=== PATIENT | female | born 1995 | race African-American/Black ===

== ENCOUNTER 2017-02-21 05:10 | Emergency (ER) | payer BC ==
[~2017-02-21] VITALS: Ht 167.6 cm; Wt 53.5 kg
[2017-02-21 05:22] VITALS: Ht 167.6 cm; Wt 53.5 kg
[2017-02-21] MEDS ORDERED: ASPIRIN 325 MG TAB PO STA (06:19)
[2017-02-21 06:35] LABS: ADD SCAN DIFF NO
[2017-02-21 06:40] LABS: BASOPHIL # 0.1 10^3/ul (0.0-0.1); BASOPHILS % 0.7 % (0.0-2.0); EOSINOPHILS # 0.1 10^3/ul (0.0-0.5); HEMATOCRIT 36.4 % (37.0-47.0); LYMPHOCYTES # 2.2 10^3/ul (0.8-2.9); LYMPHOCYTES % 31.4 % (15.0-51.0); MEAN CORPUSCULAR HEMOGLOBIN 30.5 pg (29.0-33.0); MEAN CORPUSCULAR VOLUME 92.6 fl (82.0-101.0); MEAN PLATELET VOLUME 8.3 fl (7.4-10.4); MONOCYTE # 0.9 10^3/ul (0.3-0.9); MONOCYTES % 13.7 % (0.0-11.0); NEUTROPHIL # 3.6 10^3/ul (1.6-7.5); NEUTROPHILS % 51.9 % (39.0-77.0); PLATELET COUNT 373 10^3/UL (140-415); RED BLOOD COUNT 3.93 10^6/ul (4.20-5.40); RED CELL DISTRIBUTION WIDTH 13.1 % (11.5-14.5); WHITE BLOOD COUNT 6.9 10^3/ul (4.8-10.8)
--- NOTE | 2017-02-21 06:44 | RADRPT ---
PROCEDURE: XR Chest. CLINICAL INDICATION: Chest pain TECHNIQUE: A single AP view of the chest was obtained. COMPARISON: None. FINDINGS: Artifact obscures evaluation of the upper mediastinum. No focal airspace opacification, pleural eff usion or pneumothorax is seen. The cardiomediastinal silhouette is within normal limits for size. The osseous structures are unremarkable. IMPRESSION: Artifact from the patient's hair obscures evaluation of the upper mediastinum. No definite abnormal ity is appreciated. Consider repeat evaluation with hair removed from the field of view. RPTAT: HH .Mary Donato MD, MD Date Time Electronically viewed and signed by .Mary Donato MD, on 02/21/2017 06:44 .G/
[2017-02-21 06:55] LABS: ANION GAP 11 (8-16); BLOOD UREA NITROGEN 8 mg/dl (7-20); CARBON DIOXIDE 26 mmol/L (21-31); CHLORIDE 106 mmol/L (97-110); CREATININE 0.79 mg/dl (0.44-1.00); GLUCOSE 96 mg/dl (70-220); POTASSIUM 3.9 mmol/L (3.5-5.1); SODIUM 139 mmol/L (135-144)
[2017-02-21 07:08] LABS: TROPONIN-I < 0.012 ng/ml (0.00-0.12)
[2017-02-21] MEDS ORDERED: KETOROLAC 30 MG INJ IV STA (07:19)
--- NOTE | 2017-02-21 09:03 | ERD ---
ER Documentation Chief Complaint Date/Time DATE: 02/21/17 TIME: 08:54 Chief Complaint anxiety, sob, chest tightness HPI This 22-year-old female presents emergency room for feeling of nonradiating soreness and tightness in her chest. It is made worse by certain positions such as laying on one side or the other. Is been going on for 2 weeks. She had been seen previously at a different facility and told that she had anxiety. Says that she has had some mild shortness of breath from time to time. Denies nausea vomiting. Denies lightheadedness or weakness. She denies any fever or chills. Patient's EKG is quite obvious for pericarditis and was performed prior to me seeing her. I told her that this is probably pericarditis and she says that actually she was diagnosed with that approximately a year ago as well and it had subsided. ROS All systems reviewed and are negative except as per history of present illness. Medications Home Meds Active Scripts Hydrocodone/Acetaminophen ([place] 5-325 Tablet) 1 Each Tablet, 1 EACH PO Q6, #14 TAB Prov:SAM DEAL DO 02/21/17 Allergies Allergies: Coded Allergies: ibuprofen (Verified Allergy, Unknown, NAUSEA , DIARRHEA, 02/21/17) PMhx/Soc Medical and Surgical Hx: pt denies Medical Hx, pt denies Surgical Hx Hx Alcohol Use: Yes Hx Substance Use: Yes (marijuana use) Hx Tobacco Use: Yes (marijuana use) Smoking Status: Unknown if ever smoked Physical Exam Vitals Vital Signs Date Time Temp Pulse Resp B/P Pulse Ox O2 Delivery O2 Flow Rate FiO2 02/21/17 05:22 97.8 94 20 131/70 99 Physical Exam Const: [] No distress Head: Atraumatic Eyes: Normal Conjunctiva ENT: Normal External Ears, Nose and Mouth. Neck: Full range of motion..~ No meningismus. Resp: Clear to auscultation bilaterally Cardio: Regular rate and rhythm, no murmurs, no friction rub Abd: Soft, non tender, non distended. Normal bowel sounds Skin: No petechiae or rashes Ext: No cyanosis, or edema Neur: Awake and alert Psych: Normal Mood and Affect Result Diagram: 02/21/17 0626 02/21/17 0626 Results 24 hrs Laboratory Tests Test 02/21/17 06:26 White Blood Count 6.910^3/ul Red Blood Count 3.9310^6/ul Hemoglobin 12.0g/dl Hematocrit 36.4% Mean Corpuscular Volume 92.6fl Mean Corpuscular Hemoglobin 30.5pg Mean Corpuscular Hemoglobin Concent 33.0g/dl Red Cell Distribution Width 13.1% Platelet Count 43669^3/UL Mean Platelet Volume 8.3fl Neutrophils % 51.9% Lymphocytes % 31.4% Monocytes % 13.7% Eosinophils % 2.0% Basophils % 0.7% Nucleated Red Blood Cells % 0.0/100WBC Neutrophils # 3.610^3/ul Lymphocytes # 2.210^3/ul Monocytes # 0.910^3/ul Eosinophils # 0.110^3/ul Basophils # 0.110^3/ul Nucleated Red Blood Cells # 0.010^3/ul Sodium Level 139mmol/L Potassium Level 3.9mmol/L Chloride Level 106mmol/L Carbon Dioxide Level 26mmol/L Anion Gap 11 Blood Urea Nitrogen 8mg/dl Creatinine 0.79mg/dl Glucose Level 96mg/dl Calcium Level 9.0mg/dl Troponin I < 0.012ng/ml Current Medications Medications (Trade) Dose Ordered Sig/Kirsten Route PRN Reason Start Time Stop Time Status Last Admin Dose Admin Aspirin (Aspirin) 325 mg ONCE STAT PO 02/21/17 06:19 02/21/17 06:22 DC 02/21/17 06:27 Ketorolac Tromethamine (Toradol) 30 mg ONCE STAT IV 02/21/17 07:19 02/21/17 07:20 DC 02/21/17 07:39 Procedures/MDM Acute pericarditis. Patient preferred to have a workup with blood work to check for any other causes. She had no evidence for ischemia and had a negative troponin after 2 weeks of the pain. I have very low suspicion for pulmonary embolism, myocardial infarction, myocarditis. She was given Toradol which resolved her pain and allowed her to sleep for the first time in a few days she said. She is feeling much better. I am going to discharge her with naproxen 500 mg twice daily as well as instructions to follow-up with her primary care doctor for an appointment for an echocardiogram. EKG interpretation: Normal sinus rhythm, normal axis, diffuse ST elevations consistent with acute pericarditis. monitor car operator interpretation: Normal sinus rhythm without arrhythmias Chest x-ray interpretation: I see no acute process, no widened mediastinum, no pneumothorax, no pulmonary edema, no fractures Departure Diagnosis: Primary Impression: Acute pericarditis Condition: Stable SAM DEAL DO February 21, 2017 09:03
[2017-02-21] MEDS ORDERED: HYDR-906 PO (09:04)
[2017-02-21 09:07] VITALS: BP 126/72; PULSE 88; RESP 20; TEMP 98.1
== END 2017-02-21 09:08 | disposition home or self-care (01) ==
LOC: FTE 05:10
DX: I30.9 Acute pericarditis, unspecified (principal); R07.89 Other chest pain
CPT/HCPCS: 36415; 71010; 80048; 84484; 85025; 96374; 99285; J1885

== ENCOUNTER 2017-06-11 00:39 | Emergency (ER) | payer BC ==
[~2017-06-11] VITALS: Ht 162.6 cm; Wt 52.0 kg
[~2017-06-11 00:39] MED LIST: HYDR-906 PO
[2017-06-11 00:44] VITALS: Ht 162.6 cm; Wt 52.0 kg
[2017-06-11] MEDS ORDERED: ONDANSETRON 4 MG INJ IV STA (00:52)
[2017-06-11] MEDS ORDERED: morphine 4 MG/ML VIAL IV STA (00:52)
[2017-06-11] MEDS ORDERED: SOD CHLORIDE 0.9% 500 ML IV STA (00:52)
--- NOTE | 2017-06-11 02:08 | RADRPT ---
PROCEDURE: XR Chest. CLINICAL INDICATION: Shortness of breath. TECHNIQUE: AP Portable chest. COMPARISON: 02/21/2017 FINDINGS: The cardiomediastinal silhouette is normal. The lungs are clear. The osseous structures are unrema rkable. IMPRESSION: No acute findings. RPTAT: HIKT .Hal Clinton MD, MD Date Time Electronically viewed and signed by .Hal Clinton MD, MD on 06/11/2017 02:07 .T/
--- NOTE | 2017-06-11 02:14 | RADRPT ---
PROCEDURE: CT abdomen and pelvis without intravenous contrast. CLINICAL INDICATION: Pain. TECHNIQUE: CT of the abdomen/pelvis was performed utilizing axial images with reconstructions in s agittal and coronal planes. The administered radiation dose is CTDI 17 mGy, DLP 945 mGy-cm. COMPARISON: No pertinent prior examinations were submitted for comparison. FINDINGS: Visualized Chest: The visualized lung bases are clear. Abdomen: The examination is limited by paucity of intra-abdominal fat contrast and lack of intravenous contra st. The liver, spleen, pancreas, gallbladder,and adrenal glands are unremarkable. The kidneys are without hydronephrosis. No definite urinary calculi are seen. There is no evidence of bowel obstruction. The appendix is normal. No intra-abdominal free air is seen. There is no evidence of intra-abdominal adenopathy or free fluid. Pelvis: Some minimal fatty infiltrative changes are seen within the prevesical space. There is a small amou nt of pelvic free fluid. The uterus and ovaries are without enlargement. No pelvic adenopathy is i dentified. Osseous structures: Unremarkable. IMPRESSION: Mild inflammatory changes in the prevesical space along with a small amount of pelvic free fluid. P lease correlate for cystitis or and pelvic process such as pelvic inflammatory disease. Normal appendix. RPTAT: HIKT .Hal Clinton MD, MD Date Time Electronically viewed and signed by .Hal Clinton MD, MD on 06/11/2017 02:14 .T/
[2017-06-11 02:22] LABS: ADD UMIC YES; UR ASCORBIC ACID NEGATIVE (NEGATIVE); UR BILIRUBIN (Dip) NEGATIVE (NEGATIVE); UR BLOOD (Dip) 1+ mg/dL (NEGATIVE); UR CLARITY CLEAR (CLEAR); UR COLOR YELLOW (YELLOW); UR GLUCOSE (Dip) NEGATIVE (NEGATIVE); UR KETONES (Dip) 1+ mg/dL (NEGATIVE); UR LEUKOCYTE ESTERASE (Dip) NEGATIVE Leu/ul (NEGATIVE); UR NITRITE (Dip) NEGATIVE (NEGATIVE); UR RBC 1 /HPF (0-5); UR SPECIFIC GRAVITY (Dip) 1.016 (1.003-1.030); UR SQUAMOUS EPITHELIAL CELL FEW /HPF (FEW); UR TOTAL PROTEIN (Dip) NEGATIVE (NEGATIVE); UR UROBILINOGEN (Dip) NEGATIVE (NEGATIVE)
[2017-06-11 03:32] LABS: BASOPHIL # 0.1 10^3/ul (0.0-0.1); EOSINOPHILS # 0.1 10^3/ul (0.0-0.5); EOSINOPHILS % 1.4 % (0.0-7.0); HEMATOCRIT 32.5 % (37.0-47.0); HEMOGLOBIN 10.8 g/dl (12.0-16.0); LYMPHOCYTES # 2.3 10^3/ul (0.8-2.9); LYMPHOCYTES % 27.4 % (15.0-51.0); MEAN CORPUSCULAR HEMOGLOBIN 30.2 pg (29.0-33.0); MEAN CORPUSCULAR HGB CONC 33.2 g/dl (32.0-37.0); MEAN CORPUSCULAR VOLUME 90.8 fl (82.0-101.0); MEAN PLATELET VOLUME 9.3 fl (7.4-10.4); MONOCYTES % 12.4 % (0.0-11.0); NEUTROPHILS % 57.6 % (39.0-77.0); PLATELET COUNT 305 10^3/UL (140-415); RED BLOOD COUNT 3.58 10^6/ul (4.20-5.40); RED CELL DISTRIBUTION WIDTH 12.4 % (11.5-14.5); WHITE BLOOD COUNT 8.4 10^3/ul (4.8-10.8)
[2017-06-11 03:48] LABS: ALBUMIN 3.8 g/dl (3.3-4.9); ALBUMIN/GLOBULIN RATIO 1.11; BILIRUBIN,INDIRECT 0.3 mg/dl (0-1.1); BILIRUBIN,TOTAL 0.3 mg/dl (0.2-1.3); CALCIUM 8.6 mg/dl (8.4-10.2); CREATININE 0.83 mg/dl (0.44-1.00); POTASSIUM 3.5 mmol/L (3.5-5.1); TOTAL PROTEIN 7.2 g/dl (6.1-8.1)
--- NOTE | 2017-06-11 05:10 | ERD ---
ER Documentation Chief Complaint Date/Time DATE: 06/11/17 TIME: 05:08 Chief Complaint bib self, cc: abdominal pain, loose stool, difficulty eating, hx pericardi HPI This is a 22-year-old female comes in with complaints of abdominal pain and loose stool and abdominal pain that now radiates to her chest wall. Patient has history of pericarditis that that is exactly how it started last time. Denies any fevers or chills. Chest pain is mild to moderate intensity no exacerbating or alleviating factors. No other current complaints. ROS All systems reviewed and are negative except as per history of present illness. Medications Home Meds Active Scripts Hydrocodone/Acetaminophen ([place] 5-325 Tablet) 1 Each Tablet, 1 EACH PO Q6, #14 TAB Prov:SAM DEAL DO 02/21/17 Allergies Allergies: Coded Allergies: ibuprofen (Verified Allergy, Unknown, NAUSEA , DIARRHEA, 02/21/17) PMhx/Soc Hx Cardiac Disorders: Yes (pericarditis) Hx Alcohol Use: Yes Hx Substance Use: Yes (marijuana use) Hx Tobacco Use: No Smoking Status: Never smoker Physical Exam Vitals Vital Signs Date Time Temp Pulse Resp B/P Pulse Ox O2 Delivery O2 Flow Rate FiO2 06/11/17 03:39 98.7 81 16 117/64 Room Air 06/11/17 00:44 98.6 73 19 155/87 99 Physical Exam Const: [] Head: Atraumatic Eyes: Normal Conjunctiva ENT: Normal External Ears, Nose and Mouth. Neck: Full range of motion..~ No meningismus. Resp: Clear to auscultation bilaterally Cardio: Regular rate and rhythm, no murmurs Abd: Soft, non tender, non distended. Normal bowel sounds Skin: No petechiae or rashes Back: No midline or flank tenderness Ext: No cyanosis, or edema Neur: Awake and alert Psych: Normal Mood and Affect Result Diagram: 06/11/1731006/11/17 0311 Results 24 hrs Laboratory Tests Test 06/11/17 01:46 06/11/17 03:11 Urine Color YELLOW Urine Clarity CLEAR Urine pH 5.0 Urine Specific [place] 1.016 Urine Ketones 1+mg/dL Urine Nitrite NEGATIVEmg/dL Urine Bilirubin NEGATIVEmg/dL Urine Urobilinogen NEGATIVEmg/dL Urine Leukocyte Esterase NEGATIVELeu/ul Urine Microscopic RBC 1/HPF Urine Microscopic WBC 1/HPF Urine Squamous Epithelial Cells FEW/HPF Urine Hemoglobin 1+mg/dL Urine Glucose NEGATIVEmg/dL Urine Total Protein NEGATIVEmg/dl White Blood Count 8.410^3/ul Red Blood Count 3.5810^6/ul Hemoglobin 10.8g/dl Hematocrit 32.5% Mean Corpuscular Volume 90.8fl Mean Corpuscular Hemoglobin 30.2pg Mean Corpuscular Hemoglobin Concent 33.2g/dl Red Cell Distribution Width 12.4% Platelet Count 08187^3/UL Mean Platelet Volume 9.3fl Neutrophils % 57.6% Lymphocytes % 27.4% Monocytes % 12.4% Eosinophils % 1.4% Basophils % 1.0% Nucleated Red Blood Cells % 0.0/100WBC Neutrophils # (Manual) 510^3/ul Lymphocytes # 2.310^3/ul Monocytes # 1.010^3/ul Eosinophils # 0.110^3/ul Basophils # 0.110^3/ul Nucleated Red Blood Cells # 0.010^3/ul Erythrocyte Sedimentation Rate 41mm/Hr Sodium Level 139mmol/L Potassium Level 3.5mmol/L Chloride Level 109mmol/L Carbon Dioxide Level 21mmol/L Anion Gap 13 Blood Urea Nitrogen 7mg/dl Creatinine 0.83mg/dl Glucose Level 79mg/dl Calcium Level 8.6mg/dl Total Bilirubin 0.3mg/dl Direct Bilirubin 0.00mg/dl Indirect Bilirubin 0.3mg/dl Aspartate Amino Transf (AST/SGOT) 19IU/L Alanine Aminotransferase (ALT/SGPT) 27IU/L Alkaline Phosphatase 94IU/L Total Protein 7.2g/dl Albumin 3.8g/dl Globulin 3.40g/dl Albumin/Globulin Ratio 1.11 Lipase 45U/L Current Medications Medications (Trade) Dose Ordered Sig/Kirsten Route PRN Reason Start Time Stop Time Status Last Admin Dose Admin Sodium Chloride (NS) 500 ml @ 500 mls/hr Q1H STAT IV 06/11/17 00:52 06/11/17 01:51 DC 06/11/17 01:42 Morphine Sulfate (morphine) 4 mg ONCE STAT IV 06/11/17 00:52 06/11/17 00:54 DC 06/11/17 01:41 Ondansetron HCl (Zofran Inj) 4 mg ONCE STAT IV 06/11/17 00:52 06/11/17 00:53 DC 06/11/17 01:41 Procedures/MDM EKG: Rate/Rhythm: Normal Sinus Rhythm QRS, ST, T-waves: No changes consistent w/ acute ischemia Impression: No evidence of ischemia or arrhythmia Chest X-ray 1V Interpreted by me: Soft Tissue: No acute abnormalities Bones: No acute abnormalities Mediastinum/Cardiac Silhouette/Lungs: No acute abnormalities Medical decision-makin-year-old female who has evidence of maybe mild elevation of ESR along with early repolarization changes. At this point her pain is resolved. Patient will be discharged home with colchicine and told to follow-up with her primary care physician. Return for worsening symptoms. Patient does have a workup in progress for autonomic disorder. This more likely scenario. No evidence of CHF. No evidence of cardiovascular collapse. Departure Diagnosis: Primary Impression: Acute pericarditis Pericarditis type: unspecified type Qualified Code: I30.9 - Acute pericarditis, unspecified type Additional Impression: Abdominal pain Abdominal location: unspecified location Qualified Code: R10.9 - Abdominal pain, unspecified location Condition: Stable JOYCELYN MANCUSO Jun 11, 2017 05:10
[2017-06-11] MEDS ORDERED: KETOROLAC 60 MG INJ IM STA (05:11)
[2017-06-11] MEDS ORDERED: HYDR-902 PO (05:13)
[2017-06-11 05:40] VITALS: BP 120/64; PULSE 81; RESP 16; TEMP 98.7
== END 2017-06-11 05:40 | disposition home or self-care (01) ==
LOC: E/R 00:39
DX: I30.9 Acute pericarditis, unspecified (principal)
CPT/HCPCS: 36415; 71010; 74176; 80053; 81001; 83690; 85025; 85651; 93005; 96374; 96375; 99285; J2270; J2405; J7040; J1885